=== PATIENT | male | born 1960 | race Caucasian/White ===

== ENCOUNTER 2019-06-08 10:06 | Inpatient (IN) | payer OTHER ==
[2019-06-08 12:05] VITALS: BMI 18.8
--- NOTE | 2019-06-08 13:25 | HP ---
CIWA Score Nausea/Vomitin Muscle Tremors: 3 Anxiety: 2 Agitation: 2 Paroxysmal Sweats: No Perspiration Orientation: 0-Oriented Tacttile Disturbances: 0-None Auditory Disturbances: 0-None Visual Disturbances: 0-None Headache: 3-Moderate CIWA-Ar Total Score: 12 - Admission Criteria OASAS Guidelines: Admission for Medically Managed Detox: Requires at least one of the followin. CIWA greater than 12 2. Seizures within the past 24 hours 3. Delirium tremens within the past 24 hours 4. Hallucinations within the past 24 hours 5. Acute intervention needed for co occurring medical disorder 6. Acute intervention needed for co occurring psychiatric disorder 7. Severe withdrawal that cannot be handled at a lower level of care (continued vomiting, continued diarrhea, abnormal vital signs) requiring intravenous medication and/or fluids 8. Admission ROS [facility] - [facility] Chief Complaint: alcohol detox Allergies/Adverse Reactions: Allergies Allergy/AdvReac Type Severity Reaction Status Date / Time Penicillins Allergy Unknown Hives Verified 06/08/19 11:55 History of Present Illness: Patient is a 58 yo M with a PMHx of Hep C (no treatment), arthritis, osteoporosis, depression, presenting here for alcohol detox. Has been drinking for 4 years. Drinks 6 24oz cans and a pint of rum every day. Last drink yesterday morning. 1 seizure 2 years old. Last blackout 2 years ago. says he had 2 days of detox last week at the hospital. He said he did detox a long time ago, but does not remember where. Smokes crack/cocaine whenever he has money. Last use 2 days ago. Denies pills. Denies benzo use. Says he was in the hospital yesterday because of back pain and they gave him benzo. Homeless. Disabled. Smokes 10 cigarettes a day. - Ebola screening Have you traveled outside of the country in the last 21 days: No (N) Have you had contact with anyone from an Ebola affected area: No Do you have a fever: No - Review of Systems Constitutional: Loss of Appetite, Unintentional Wgt. Loss Respiratory: denies: Shortness of Breath, Wheezing Cardiac: denies: Chest Pain, Palpitations Patient History - Smoking Cessation Smoking history: Current every day smoker Initiated information on smoking cessation: Yes 'Breaking Loose' booklet given: 06/08/19 - Substances abused K2/Spice Substance route: Smoking Frequency: Daily Amount used: 3 -4 blunts Age of first use: 54 Date of last use: 06/07/19 Alcohol Substance route: Oral Frequency: Daily Amount used: 1 pint of rum and 7 cans of beer Age of first use: 11 Date of last use: 06/07/19 Admission Physical Exam [facility] - Vital Signs Vital Signs: Vital Signs - 24 hr 06/08/19 11:54 Temperature 97.0 F L Pulse Rate 68 Respiratory 16 Rate Blood Pressure 115/71 - Physical General Appearance: Yes: No Apparent Distress Respiratory: Yes: No Respiratory Distress, No Accessory Muscle Use Cardiology: Yes: Regular Rhythm, Regular Rate Abdominal: Yes: Non Tender, Soft Extremities: Yes: Other (distal phalanx bruising and swelling of L 4th digit). No: Swelling - Diagnostic (1) Hepatitis C Current Visit: Yes Status: Acute (2) Alcohol abuse Current Visit: Yes Status: Acute (3) Cocaine abuse Current Visit: Yes Status: Acute (4) Depression Current Visit: Yes Status: Acute Cleared for Admission [facility] - Detox or Rehab [facility] Level of Care: Medically Managed Breathalyzer - Breathalyzer Breathalyzer: 0 Urine Drug Screen - Test Device Lot number: [id number] Expiration date: 02/26/21 - Control Is test valid?: Yes - Results Drug screen NEGATIVE: No Urine drug screen results: THUY-Cocaine, BZO-Benzodiazepines Inpatient Rehab Admission - Rehab Decision to Admit Inpatient rehab admission?: No
[2019-06-08] MEDS ORDERED: MAG HYDROX/AL HYDROX/SIMETH 30 ML UNIT-DOSE CUP PO PRN (14:16)
[2019-06-08] MEDS ORDERED: chlordiazePOXIDE HCL 25 MG CAPSULE PO PRN (14:16)
[2019-06-08] MEDS ORDERED: METHOCARBAMOL 500 MG TABLET PO PRN (14:16)
[2019-06-08] MEDS ORDERED: MELATONIN 5 MG TABLETS PO PRN (14:16)
[2019-06-08] MEDS ORDERED: NICOTINE POLACRILEX 4 MG GUM BUC PRN (14:16)
[2019-06-08] MEDS ORDERED: BISMUTH SUBSALICYLATE 262 MG/15 ML BTL PO PRN (14:16)
[2019-06-08] MEDS ORDERED: ACETAMINOPHEN 325 MG TABLET (FP) PO PRN ×2 (14:16)
[2019-06-08] MEDS ORDERED: MAGNESIUM CITRATE 300 ML BOTTLE PO PRN (14:16)
[2019-06-08] MEDS ORDERED: MENTHOL/PHENOL 1 EACH UD MM PRN (14:16)
[2019-06-08] MEDS ORDERED: MAGNESIUM HYDROX 2400MG/30ML ORAL SUSPENSION 30 ML CUP PO PRN (14:16)
[2019-06-08] MEDS ORDERED: IBUPROFEN 400 MG TABLET (FP) PO PRN (14:16)
[2019-06-08] MEDS ORDERED: hydrOXYzine PAMOATE 25 MG CAPSULE (FP) PO PRN (14:16)
--- NOTE | 2019-06-08 15:01 | PN ---
Teaching Attending Note Name of Resident: Narciso Villarreal ATTENDING PHYSICIAN STATEMENT I saw and evaluated the patient. I reviewed the resident's note and discussed the case with the resident. I agree with the resident's findings and plan as documented. SUBJECTIVE:58 y.o. male w/ PMHX Hep C no tx presents requesting detox from etoh use , 6 x 24 -oz can /day and 1 pint rum /day , was at [facility] d/ c 06/02/19 , states had blackout ,continued etoh use , d/c 06/05/19 @ [facility] , d/c today from [facility] , reports he slammed his left index finger in the door of a store yesterday. CIWA =12 OBJECTIVE: wnwd , anxious , agitated . Vital Signs - 24 hr 06/08/19 11:54 Temperature 97.0 F L Pulse Rate 68 Respiratory 16 Rate Blood Pressure 115/71 ASSESSMENT AND PLAN: etoh dependence -Librium detox pt declines XR of left finger - to sign AMA . CXR negative 06/02/19 .
[2019-06-08] MEDS: METHYL SALICYLATE/MENTHOL OINT 30 GM TUBE TP SCH (15:32)
[2019-06-08] MEDS: chlordiazePOXIDE HCL 25 MG CAPSULE PO SCH ×2 (17:14→22:19)
[2019-06-08] MEDS: THIAMINE HCL 100 MG TABLET (FP) PO SCH (22:19)
[2019-06-09] MEDS: chlordiazePOXIDE HCL 25 MG CAPSULE PO SCH ×2 (06:03→10:20)
[2019-06-09] MEDS: METHYL SALICYLATE/MENTHOL OINT 30 GM TUBE TP SCH (10:19)
[2019-06-09] MEDS: PRENATAL VITAMINS W/ FOLIC ACID TABLET (FP) PO SCH (10:20)
[2019-06-09 12:29] LABS: HEMATOCRIT 42.6 % (35.4-49); HEMOGLOBIN 14.1 GM/dL (11.7-16.9); MCH 32.4 pg (25.7-33.7); MCHC 33.1 g/dl (32.0-35.9); MEAN CELL VOLUME 97.8 fl (80-96); MEAN PLT VOLUME 9.7 fl (7.5-11.1); PLATELET COUNT 200 K/MM3 (134-434); RBC 4.35 M/mm3 (4.00-5.60); RDW 14.1 % (11.9-15.9); WHITE BLOOD COUNT 5.1 K/mm3 (4.0-10.0)
[2019-06-09 12:56] LABS: ALBUMIN 3.3 g/dl (3.4-5.0); BILIRUBIN,TOTAL 0.5 mg/dL (0.2-1); BLOOD UREA NITROGEN 7.8 mg/dL (7-18); CALCIUM 9.1 mg/dL (8.5-10.1); CREATININE 0.8 mg/dL (0.55-1.3); POTASSIUM 4.9 mmol/L (3.5-5.1)
--- NOTE | 2019-06-09 13:20 | PN ---
S CIWA - CIWA Score Nausea/Vomitin-Mild Nausea/No Vomiting Muscle Tremors: 3 Anxiety: 4-Mod. Anxious/Guarded Agitation: 3 Paroxysmal Sweats: 2 Orientation: 0-Oriented Tacttile Disturbances: 0-None Auditory Disturbances: 0-None Visual Disturbances: 0-None Headache: 1-Very Mild CIWA-Ar Total Score: 14 S Progress Note (SOAP) Subjective: 58 years old male 1st patient [facility] admission was admitted on 06/08/19 for alcohol withdrawal sx management doing well with librium detox regimen sleep batter at night less tremor mo muscles spasm today Objective: 06/09/19 13:22 Vital Signs Temperature 97.6 F 06/09/19 09:22 Pulse Rate 93 H 06/09/19 09:22 Respiratory Rate 20 06/09/19 09:22 Blood Pressure 108/82 06/09/19 09:22 O2 Sat by Pulse Oximetry (%) Laboratory Last Values WBC 5.1 K/mm3 (4.0-10.0) 06/09/19 08:50 RBC 4.35 M/mm3 (4.00-5.60) 06/09/19 08:50 Hgb 14.1 GM/dL (11.7-16.9) 06/09/19 08:50 Hct 42.6 % (35.4-49) 06/09/19 08:50 MCV 97.8 fl (80-96) H 06/09/19 08:50 MCH 32.4 pg (25.7-33.7) 06/09/19 08:50 MCHC 33.1 g/dl (32.0-35.9) 06/09/19 08:50 RDW 14.1 % (11.9-15.9) 06/09/19 08:50 Plt Count 200 K/MM3 (134-434) 06/09/19 08:50 MPV 9.7 fl (7.5-11.1) 06/09/19 08:50 Sodium 141 mmol/L (136-145) 06/09/19 08:50 Potassium 4.9 mmol/L (3.5-5.1) 06/09/19 08:50 Chloride 103 mmol/L (98-107) 06/09/19 08:50 Carbon Dioxide 33 mmol/L (21-32) H 06/09/19 08:50 Anion Gap 5 MMOL/L (8-16) L 06/09/19 08:50 BUN 7.8 mg/dL (7-18) 06/09/19 08:50 Creatinine 0.8 mg/dL (0.55-1.3) 06/09/19 08:50 Est GFR (CKD-EPI)AfAm 113.33 06/09/19 08:50 Est GFR (CKD-EPI)NonAf 97.78 06/09/19 08:50 Random Glucose 98 mg/dL (74-106) 06/09/19 08:50 Calcium 9.1 mg/dL (8.5-10.1) 06/09/19 08:50 Total Bilirubin 0.5 mg/dL (0.2-1) 06/09/19 08:50 AST 172 U/L (15-37) H 06/09/19 08:50 ALT 186 U/L (13-61) H 06/09/19 08:50 Alkaline Phosphatase 62 U/L (45-117) 06/09/19 08:50 Total Protein 7.0 g/dl (6.4-8.2) 06/09/19 08:50 Albumin 3.3 g/dl (3.4-5.0) L 06/09/19 08:50 lab noted recommend ativan detox regimen 06/09/19 13:24 ast elevation repeat ast Assessment: 06/09/19 13:23 alcohol withdrawal sx Plan: continue libirum detox regimen patient is considering librium detox
[2019-06-09] MEDS: LORazepam 1 MG TABLET PO SCH ×2 (17:41→22:05)
[2019-06-09] MEDS: THIAMINE HCL 100 MG TABLET (FP) PO SCH (22:05)
[2019-06-10] MEDS ORDERED: chlordiazePOXIDE HCL 25 MG CAPSULE PO SCH (05:00)
[2019-06-10] MEDS: LORazepam 0.5 MG TABLET PO SCH ×2 (06:02→10:18)
[2019-06-10 09:13] VITALS: BP 115/83; PULSE 89; TEMP 96.7
[2019-06-10] MEDS: PRENATAL VITAMINS W/ FOLIC ACID TABLET (FP) PO SCH (10:17)
[2019-06-10] MEDS: METHYL SALICYLATE/MENTHOL OINT 30 GM TUBE TP SCH (10:17)
--- NOTE | 2019-06-10 13:10 | DS ---
[facility] Detox Discharge Summary Admission Date: 06/08/19 Discharge Date: 06/10/19 - History Present History: Alcohol Dependence Additional Comments: 58 years old male admitted on 06/08/19 for alcohol withdrawal sx management did well with Ativan detox regimen insists to leave the detox unit that without rehab bed available today "no point to stay" patient is alert oriented x 3 denies dizziness no shortness of breath no nausea no vomiting denies jenkins ambulating steady gait speech clearly coherently - Physical Exam Results Vital Signs: Vital Signs Temperature 96.7 F L 06/10/19 09:12 Pulse Rate 89 06/10/19 09:12 Respiratory Rate 18 06/10/19 09:12 Blood Pressure 115/83 06/10/19 09:12 O2 Sat by Pulse Oximetry (%) Pertinent Admission Physical Exam Findings: alcohol withdrawal sx Laboratory Last Values WBC 5.1 K/mm3 (4.0-10.0) 06/09/19 08:50 RBC 4.35 M/mm3 (4.00-5.60) 06/09/19 08:50 Hgb 14.1 GM/dL (11.7-16.9) 06/09/19 08:50 Hct 42.6 % (35.4-49) 06/09/19 08:50 MCV 97.8 fl (80-96) H 06/09/19 08:50 MCH 32.4 pg (25.7-33.7) 06/09/19 08:50 MCHC 33.1 g/dl (32.0-35.9) 06/09/19 08:50 RDW 14.1 % (11.9-15.9) 06/09/19 08:50 Plt Count 200 K/MM3 (134-434) 06/09/19 08:50 MPV 9.7 fl (7.5-11.1) 06/09/19 08:50 Sodium 141 mmol/L (136-145) 06/09/19 08:50 Potassium 4.9 mmol/L (3.5-5.1) 06/09/19 08:50 Chloride 103 mmol/L (98-107) 06/09/19 08:50 Carbon Dioxide 33 mmol/L (21-32) H 06/09/19 08:50 Anion Gap 5 MMOL/L (8-16) L 06/09/19 08:50 BUN 7.8 mg/dL (7-18) 06/09/19 08:50 Creatinine 0.8 mg/dL (0.55-1.3) 06/09/19 08:50 Est GFR (CKD-EPI)AfAm 113.33 06/09/19 08:50 Est GFR (CKD-EPI)NonAf 97.78 06/09/19 08:50 Random Glucose 98 mg/dL (74-106) 06/09/19 08:50 Calcium 9.1 mg/dL (8.5-10.1) 06/09/19 08:50 Total Bilirubin 0.5 mg/dL (0.2-1) 06/09/19 08:50 AST 172 U/L (15-37) H 06/09/19 08:50 ALT 186 U/L (13-61) H 06/09/19 08:50 Alkaline Phosphatase 62 U/L (45-117) 06/09/19 08:50 Total Protein 7.0 g/dl (6.4-8.2) 06/09/19 08:50 Albumin 3.3 g/dl (3.4-5.0) L 06/09/19 08:50 RPR Titer Nonreactive (NONREACTIVE) 06/09/19 08:50 lab noted encourage the patient returning to primary care provider in the community patient stated "I am going to another hospital" - Treatment Hospital Course: Detox Protocol Followed, Detoxed Safely, Responded well, Discharged Condition Good, Rehab Referral Accepted Patient has Accepted a Re[facility] Referral to: [facility] - Medication Discharge Medications: Ambulatory Orders NK [No Known Home Medication] 06/08/19 - Diagnosis (1) Liver enzyme elevation Current Visit: Yes Status: Acute (2) Alcohol abuse Current Visit: Yes Status: Acute (3) Hepatitis C Current Visit: Yes Status: Chronic Qualifiers: Viral hepatitis chronicity: carrier Qualified Code(s): B18.2 - Chronic viral hepatitis C - AMA Did Patient Leave Against Medical Advice: Yes
[2019-06-11] MEDS ORDERED: chlordiazePOXIDE HCL 10 MG CAPSULE PO PRN
[2019-06-11] MEDS ORDERED: chlordiazePOXIDE HCL 10 MG CAPSULE PO SCH (05:00)
[2019-06-11] MEDS ORDERED: LORazepam 0.5 MG TABLET PO SCH (05:00)
[2019-06-12] MEDS ORDERED: chlordiazePOXIDE HCL 10 MG CAPSULE PO SCH (05:00)
[2019-06-12] MEDS ORDERED: LORazepam 0.5 MG TABLET PO SCH (05:00)
[2019-06-13] MEDS ORDERED: chlordiazePOXIDE HCL 10 MG CAPSULE PO ONE (05:00)
[2019-06-13] MEDS ORDERED: LORazepam 0.5 MG TABLET PO ONE (05:00)
== END 2019-06-10 12:07 | disposition left against medical advice (07) | DRG 770 ==
LOC: YASAS 10:06 → Y3N 14:38
PROVIDERS: ADMIT Surgery; ATTEND Surgery
PROC: HZ2ZZZZ Detoxification Services for Substance Abuse Treatment (ICD-10-PCS; principal; 2019-06-08)
DX: F10.230 Alcohol dependence with withdrawal, uncomplicated (principal); F14.10 Cocaine abuse, uncomplicated; F17.210 Nicotine dependence, cigarettes, uncomplicated; F32.9 Major depressive disorder, single episode, unspecified; B18.2 Chronic viral hepatitis C; R94.5 Abnormal results of liver function studies; Z88.0 Allergy status to penicillin
CPT/HCPCS: 36415; 80053; 85027; 86593

== ENCOUNTER 2019-07-06 14:41 | Inpatient (IN) | payer OTHER ==
[2019-07-06 15:27] VITALS: BMI 21.5
--- NOTE | 2019-07-06 15:55 | HP ---
CIWA Score Nausea/Vomitin Muscle Tremors: 4-Moderate,w/Arms Extend Anxiety: 2 Agitation: 1-Slight > Activity Paroxysmal Sweats: 1-Minimal Palms Moist Orientation: 1-Uncertain about Date Tacttile Disturbances: 1-Very Mild Itch/Numbness Auditory Disturbances: 0-None Visual Disturbances: 0-None Headache: 2-Mild CIWA-Ar Total Score: 14 - Admission Criteria OASAS Guidelines: Admission for Medically Managed Detox: Requires at least one of the followin. CIWA greater than 12 2. Seizures within the past 24 hours 3. Delirium tremens within the past 24 hours 4. Hallucinations within the past 24 hours 5. Acute intervention needed for co occurring medical disorder 6. Acute intervention needed for co occurring psychiatric disorder 7. Severe withdrawal that cannot be handled at a lower level of care (continued vomiting, continued diarrhea, abnormal vital signs) requiring intravenous medication and/or fluids 8. Patient presents the following: CIWA greater than 12 Admission Criteria Met: Admission criteria met Admitting History and Physical - Smoking History Smoking history: Current every day smoker Have you smoked in the past 12 months: Yes Aproximately how many cigarettes per day: 10 Admission ROS [facility] Chief Complaint: Tonny Blank is a 58 year old male presenting for alcohol, cocaine, and opiate abuse. Allergies/Adverse Reactions: Allergies Allergy/AdvReac Type Severity Reaction Status Date / Time Penicillins Allergy Unknown Hives Verified 07/06/19 15:22 History of Present Illness: Tonny Blank is a 58 year old male presenting for alcohol, cocaine, and opiate abuse. Alcohol: 6 24oz cans and a pint of rum every day. Last drink was yesterday. Has been drinking for 10 years. Longest period of sobriety: 10 years. Started drinking again due to divorce. Has had seizure in the past, most recent was several years prior. Has had blackouts, 3 months ago. Has had falls and head hits. Was at hospital for a recent fall and head hit and was cleared by [facility] for any acute pathology as per patient. Stated has residual rib pain. Withdrawal symptoms: anxiety, nausea, tremors. Cocaine: use depends on money 50$ and up. Uses daily. Heroin: 3-4 bags occasionally. Inhalation. Denies IVDU. Denies every being on methadone program. Denies overdose. Denies having a Narcan kit but knows how to use. THC: 2-3 blunts daily. Denies BZO use, but states he received medications at [facility], unsure of what medications. Has been to detox in the past. Denies previous rehab. States wanted to go to rehab after detox. Medical History: Hep C (no treatment), arthritis, osteoporosis, stroke (no residual deficits), Psychiatric History: depression Surgical History: denies Smokin cigarettes a day, for "many years" Social: Homeless. Disabled. Utox: THC, THUY, OPI, BZO DANIEL: 0.000 Will be admitted for detox and will explore options for rehab after completing detox. Will start on Librium protocol and reassess after obtaining labs. Exam Limitations: No Limitations - Ebola screening Have you traveled outside of the country in the last 21 days: No (N) Have you had contact with anyone from an Ebola affected area: No Do you have a fever: No - Review of Systems Constitutional: Chills, Loss of Appetite EENT: reports: No Symptoms Reported, Nose Congestion, Other (rhinnorhea) Respiratory: reports: Cough Cardiac: reports: No Symptoms Reported GI: reports: Constipated, Nausea : reports: Burning, Frequency Musculoskeletal: reports: Back Pain, Muscle Pain, Neck Pain, Other (rib pain on left and right s/p fall) Integumentary: reports: No Symptoms Reported Neuro: reports: Headache Endocrine: reports: No Symptoms Reported Hematology: reports: No Symptoms Reported Psychiatric: reports: Orientated x3, Anxious Patient History - Patient Medical History Hx Asthma: No Hx Chronic Obstructive Pulmonary Disease (COPD): No Hx Cardiac Disorders: No Hx Congestive Heart Failure: No Hx Hypertension: No Hx Hypercholesterolemia: No Hx Pacemaker: No HX Cerebrovascular Accident: Yes (no residual deficits) Hx Seizures: Yes (etoh related in 2013) Hx Dementia: No Hx Diabetes: No Hx Gastrointestinal Disorders: No Hx Liver Disease: No Hx Genitourinary Disorders: No Hx Sexually Transmitted Disorders: No Hx Renal Disease (ESRD): No Hx Thyroid Disease: No Hx Human Immunodeficiency Virus (HIV): No Hx Hepatitis C: Yes (not treated) Hx Depression: Yes (not in tx) Hx Suicide Attempt: No Hx Schizophrenia: No - Patient Surgical History Past Surgical History: No - Smoking Cessation Smoking history: Current every day smoker Have you smoked in the past 12 months: Yes Aproximately how many cigarettes per day: 10 Hx Chewing Tobacco Use: No Initiated information on smoking cessation: Yes 'Breaking Loose' booklet given: 07/06/19 - Substance & Tx. History Hx Alcohol Use: Yes Hx Substance Use: Yes Substance Use Type: Alcohol, Cocaine, Heroin, Marijuana - Substances abused K2/Spice Substance route: Smoking Frequency: Daily Amount used: 3 -4 blunts Age of first use: 54 Date of last use: 07/06/19 Alcohol Substance route: Oral Frequency: Daily Amount used: 1 pint of rum and 7 cans of beer Age of first use: 11 Date of last use: 07/05/19 Heroin Substance route: Inhalation Frequency: Daily Amount used: 4bags Age of first use: 53 Date of last use: 07/05/19 Crack Substance route: Smoking Frequency: Daily Amount used: $40 Age of first use: 29 Date of last use: 07/05/19 Admission Physical Exam S - Vital Signs Vital Signs: Vital Signs - 24 hr 07/06/19 07/06/19 15:17 15:38 Temperature 97.7 F 97.7 F Pulse Rate 65 65 Respiratory 18 18 Rate Blood Pressure 106/73 106/73 - Physical General Appearance: Yes: Disheveled, Mild Distress HEENTM: Yes: EOMI, Normocephalic, Normal Voice, WAI, Pharynx Normal Respiratory: Yes: Lungs Clear, Normal Breath Sounds, No Respiratory Distress, No Accessory Muscle Use Neck: Yes: No masses,lesions,Nodules, Trachea in good position Breast: Yes: Breast Exam Deferred Cardiology: Yes: Regular Rhythm, Regular Rate, S1, S2 Abdominal: Yes: Normal Bowel Sounds, Flat, Soft, Tenderness (mildly tender around ribs) Back: Yes: Normal Inspection Musculoskeletal: Yes: full range of Motion Extremities: Yes: Normal Capillary Refill, Normal Range of Motion, Non-Tender, Other (missing nails s/p trauma on L hand) Neurological: Yes: quilt sewer II-XII NML intact, Alert, Motor Strength 5/5 Integumentary: Yes: Normal Color, Dry, Warm, Other (noted lesion on bilateral knees s/p fall, healing well) - Diagnostic (1) Alcohol abuse Current Visit: No Status: Acute (2) Cocaine abuse Current Visit: No Status: Acute (3) Depression Current Visit: No Status: Acute (4) Liver enzyme elevation Current Visit: No Status: Acute (5) Hepatitis C Current Visit: No Status: Chronic Qualifiers: Viral hepatitis chronicity: carrier Qualified Code(s): B18.2 - Chronic viral hepatitis C Cleared for Admission [facility] - Detox or Rehab [facility] Level of Care: Medically Managed Detox Regimen/Protocol: Librium Breathalyzer - Breathalyzer Breathalyzer: 0 Urine Drug Screen - Test Device Lot number: [id number] Expiration date: 02/26/21 - Control Is test valid?: Yes - Results Drug screen NEGATIVE: No Urine drug screen results: THC-Marijuana, THUY-Cocaine, MOP-Opiates, BZO- Benzodiazepines Inpatient Rehab Admission - Rehab Decision to Admit Inpatient rehab admission?: No
[2019-07-06] MEDS ORDERED: MAGNESIUM CITRATE 300 ML BOTTLE PO PRN (16:26)
[2019-07-06] MEDS ORDERED: MAG HYDROX/AL HYDROX/SIMETH 30 ML UNIT-DOSE CUP PO PRN (16:26)
[2019-07-06] MEDS ORDERED: hydrOXYzine PAMOATE 25 MG CAPSULE (FP) PO PRN (16:26)
[2019-07-06] MEDS ORDERED: chlordiazePOXIDE HCL 25 MG CAPSULE PO PRN (16:26)
[2019-07-06] MEDS ORDERED: BISMUTH SUBSALICYLATE 524 MG/30 ML UD PO PRN (16:26)
[2019-07-06] MEDS ORDERED: MAGNESIUM HYDROX 2400MG/30ML ORAL SUSPENSION 30 ML CUP PO PRN (16:26)
[2019-07-06] MEDS ORDERED: MENTHOL/PHENOL 1 EACH UD MM PRN (16:26)
[2019-07-06] MEDS ORDERED: IBUPROFEN 600 MG TABLET (FP) PO PRN (16:32)
--- NOTE | 2019-07-06 16:36 | PN ---
Teaching Attending Note Name of Resident: Drake Cruz ATTENDING PHYSICIAN STATEMENT I saw and evaluated the patient. I reviewed the resident's note and discussed the case with the resident. I agree with the resident's findings and plan as documented. SUBJECTIVE:pt here requesting detox from etoh use , reports 6 x 24oz cans and a pint of rum every dayx 10 years . Last drink was yesterday, longest period of sobriety: 10 years.Has had seizure in the past, most recent was several years ago, reports blackouts and falls while intoxicated , most recently was at [facility] d/c today 2/2 fall , residual rib pain. Withdrawal symptoms: anxiety, nausea, tremors. Cocaine: use depends on money 50$ daily Heroin: 3-4 bags occasionally via inhalation. Denies IVDU. Denies MMTP Denies overdose. Denies having a Narcan kit but knows how to use it THC: 2-3 blunts daily. OBJECTIVE: wnwd , tremulous , CIWA 14 , COWS 5 ( anxiety , agitation , nausea - may be overlap from ETOH withdrawal ) Vital Signs - 24 hr 07/06/19 07/06/19 15:17 15:38 Temperature 97.7 F 97.7 F Pulse Rate 65 65 Respiratory 18 18 Rate Blood Pressure 106/73 106/73 ASSESSMENT AND PLAN: etoh dependence with withdrawal - Librium detox Cocaine dependence / Cannabis dependence / Opioid use , episodic
[2019-07-06] MEDS ORDERED: PNEUMOC 13-VAL CONJ-DIP CRM/PF 0.5 ML DISP.SYRIN IM ONE (17:13)
[2019-07-06] MEDS: chlordiazePOXIDE HCL 25 MG CAPSULE PO SCH ×2 (17:48→22:11)
[2019-07-06] MEDS: THIAMINE HCL 100 MG TABLET (FP) PO SCH (22:11)
[2019-07-07] MEDS: chlordiazePOXIDE HCL 25 MG CAPSULE PO SCH ×4 (06:01→22:01)
[2019-07-07] MEDS ORDERED: MECLIZINE HCL 12.5 MG TABLET PO PRN (10:13)
--- NOTE | 2019-07-07 10:16 | PN ---
S CIWA - CIWA Score Nausea/Vomitin Muscle Tremors: 2 Anxiety: 4-Mod. Anxious/Guarded Agitation: 4-Moderately Restless Paroxysmal Sweats: 1-Minimal Palms Moist Orientation: 0-Oriented Tacttile Disturbances: 1-Very Mild Itch/Numbness Auditory Disturbances: 0-None Visual Disturbances: 1-Very Mild Sensitivity Headache: 2-Mild CIWA-Ar Total Score: 18 [facility] COWS - Scale Resting Pulse: 1= DC 81-100 Sweatin= Chills/Flushing Restless Observation: 1= Difficult to Sit Still Pupil Size: 1= Pupils >than Normal Bone or Joint Aches: 2= Severe Diffuse Aches Runny Nose/ Eye Tearin= Runny Nose/Eyes GI Upset > 30mins: 2= Nausea/Diarrhea Tremor Observation of Outstretched Hands: 1= Tremor [place], Not Seen Yawning Observation: 0= None Anxiety or Irritability: 2=Irritable/Anxious Goose Flesh Skin: 0=Smooth Skin COWS Score: 13 [facility] Progress Note (SOAP) Subjective: c/o anxiety, nausea and dirrhea, hx of vertigo, body , chills, interrupted sleep Objective: 07/07/19 10:16 Vital Signs Temperature 98.3 F 07/07/19 09:05 Pulse Rate 97 H 07/07/19 09:05 Respiratory Rate 20 07/07/19 09:05 Blood Pressure 97/74 07/07/19 09:05 O2 Sat by Pulse Oximetry (%) labs pending Assessment: 07/07/19 10:17 Aox3, no acute distress +irritable + anxious + rhinorrhea no adventitious breath sounds full ROM no gait disturbance + back pain withdrawal sx Plan: utox revieviewed patient positive for opiates upon admission, reports hx of daily heroin daily use started on methadone [place]
[2019-07-07] MEDS ORDERED: cloNIDine HCL 0.1 MG TABLET PO PRN (10:19)
[2019-07-07] MEDS: PRENATAL VITAMINS W/ FOLIC ACID TABLET (FP) PO SCH (10:19)
[2019-07-07] MEDS: IBUPROFEN 400 MG TABLET (FP) PO PRN ×2 (10:21→17:18)
[2019-07-07] MEDS ORDERED: METHADONE HCL 10 MG TABLET (FOR DETOX USE ONLY) PO ONE (11:00)
[2019-07-07] MEDS: BACITRACIN 15 GM TUBE TOPICAL OINTMENT TP SCH (11:45)
[2019-07-07] MEDS: METHOCARBAMOL 500 MG TABLET PO SCH ×2 (11:45→22:01)
[2019-07-07] MEDS ORDERED: PNEUMOCOCCAL 23 VACCINE 0.5 ML VIAL IM ONE (12:00)
[2019-07-07] MEDS ORDERED: PNEUMOC 13-VAL CONJ-DIP CRM/PF 0.5 ML DISP.SYRIN IM ONE (12:00)
[2019-07-07 12:03] LABS: ALBUMIN 3.5 g/dl (3.4-5.0); BILIRUBIN,TOTAL 0.7 mg/dL (0.2-1); BLOOD UREA NITROGEN 13.5 mg/dL (7-18); CALCIUM 8.9 mg/dL (8.5-10.1); CREATININE 0.9 mg/dL (0.55-1.3); HEMATOCRIT 43.9 % (35.4-49); HEMOGLOBIN 14.7 GM/dL (11.7-16.9); MCH 32.5 pg (25.7-33.7); MCHC 33.4 g/dl (32.0-35.9); MEAN CELL VOLUME 97.1 fl (80-96); MEAN PLT VOLUME 9.2 fl (7.5-11.1); PLATELET COUNT 276 K/MM3 (134-434); POTASSIUM 4.4 mmol/L (3.5-5.1); RBC 4.52 M/mm3 (4.00-5.60); RDW 14.1 % (11.9-15.9); TOT PROT 7.8 g/dl (6.4-8.2); WHITE BLOOD COUNT 6.2 K/mm3 (4.0-10.0)
[2019-07-07 12:06] LABS: HYALINE CASTS 0 /lpf (0-8); PH,URINE 6.5 (5.0-8.0); URINE APPEARANCE CLEAR; URINE BILIRUBIN NEGATIVE (NEGATIVE); URINE COLOR YELLOW; URINE GLUCOSE (UA) NEGATIVE (NEGATIVE); URINE KETONE NEGATIVE (NEGATIVE); URINE LEUK ESTERASE 1+ (NEGATIVE); URINE NITRITE NEGATIVE (NEGATIVE); URINE PROTEIN NEGATIVE (NEGATIVE); URINE RBC 1 /hpf (0-4); URINE WBC 3 /hpf (0-5)
[2019-07-07] MEDS: THIAMINE HCL 100 MG TABLET (FP) PO SCH (22:01)
[2019-07-07] MEDS: MELATONIN 5 MG TABLETS PO PRN (22:01)
[2019-07-08] MEDS: chlordiazePOXIDE HCL 25 MG CAPSULE PO SCH ×4 (05:59→22:11)
[2019-07-08] MEDS ORDERED: METHADONE HCL 5 MG TABLET (FOR DETOX USE ONLY) PO ONE (10:00)
[2019-07-08] MEDS: PRENATAL VITAMINS W/ FOLIC ACID TABLET (FP) PO SCH (10:14)
[2019-07-08] MEDS: METHOCARBAMOL 500 MG TABLET PO SCH ×2 (10:14→22:11)
[2019-07-08] MEDS: BACITRACIN 15 GM TUBE TOPICAL OINTMENT TP SCH (10:15)
[2019-07-08] MEDS: CARBAMIDE PEROXIDE 6.5% OTIC 15 ML BOTTLE AS SCH ×2 (15:27→21:23)
--- NOTE | 2019-07-08 15:36 | PN ---
S CIWA - CIWA Score Nausea/Vomitin Muscle Tremors: None Anxiety: 3 Agitation: 2 Paroxysmal Sweats: 2 (and Chills.) Orientation: 2-Disoriented Date<2 days Tacttile Disturbances: 1-Very Mild Itch/Numbness Auditory Disturbances: 0-None Visual Disturbances: 0-None Headache: 0-None Present CIWA-Ar Total Score: 12 [facility] COWS - Scale Resting Pulse: 0= [place] 80 or Below Sweatin= Chills/Flushing Restless Observation: 1= Difficult to Sit Still Pupil Size: 0= Normal to Room Light Bone or Joint Aches: 1= Mild Discomfort Runny Nose/ Eye Tearin= None GI Upset > 30mins: 2= Nausea/Diarrhea Tremor Observation of Outstretched Hands: 0= None Yawning Observation: 0= None Anxiety or Irritability: 2=Irritable/Anxious Goose Flesh Skin: 3=Piloerection (and Chills.) COWS Score: 10 [facility] Progress Note (SOAP) Subjective: Anxious, Sweating, Chills, Nausea. Objective: PATIENT A & O X 2 (UNCERTAIN ABOUT CURRENT DAY/ DATE). PATIENT OBSERVED AMBULATING ON DETOX UNIT UNASSISTED. IN NO ACUTE DISTRESS. 07/08/19 15:43 Vital Signs Temperature 97.0 F L 07/08/19 14:10 Pulse Rate 64 07/08/19 14:10 Respiratory Rate 18 07/08/19 14:10 Blood Pressure 104/73 07/08/19 14:10 O2 Sat by Pulse Oximetry (%) Laboratory Tests 07/07/19 07/07/19 07/07/19 08:45 08:45 08:45 WBC 6.2 RBC 4.52 Hgb 14.7 Hct 43.9 MCV 97.1 H MCH 32.5 MCHC 33.4 RDW 14.1 Plt Count 276 D MPV 9.2 Sodium 138 Potassium 4.4 Chloride 102 Carbon Dioxide 31 Anion Gap 5 L BUN 13.5 Creatinine 0.9 Est GFR (CKD-EPI)AfAm 107.97 Est GFR (CKD-EPI)NonAf 93.16 Random Glucose 132 H Calcium 8.9 Total Bilirubin 0.7 AST 84 H ALT 98 H Alkaline Phosphatase 74 Total Protein 7.8 Albumin 3.5 Urine Color Urine Appearance Urine pH Ur Specific [place] Urine Protein Urine Glucose (UA) Urine Ketones Urine Blood Urine Nitrite Urine Bilirubin Urine Urobilinogen Ur Leukocyte Esterase Urine WBC (Auto) Urine RBC (Auto) Urine Casts (Auto) U Epithel Cells (Auto) Urine Bacteria (Auto) RPR Titer Nonreactive HIV 1&2 Antibody Screen HIV P24 Antigen 07/07/19 07/07/19 08:50 10:50 WBC RBC Hgb Hct MCV MCH MCHC RDW Plt Count MPV Sodium Potassium Chloride Carbon Dioxide Anion Gap BUN Creatinine Est GFR (CKD-EPI)AfAm Est GFR (CKD-EPI)NonAf Random Glucose Calcium Total Bilirubin AST ALT Alkaline Phosphatase Total Protein Albumin Urine Color Yellow Urine Appearance Clear Urine pH 6.5 Ur Specific [place] 1.017 Urine Protein Negative Urine Glucose (UA) Negative Urine Ketones Negative Urine Blood Negative Urine Nitrite Negative Urine Bilirubin Negative Urine Urobilinogen 1.0 Ur Leukocyte Esterase 1+ H Urine WBC (Auto) 3 Urine RBC (Auto) 1 Urine Casts (Auto) 0 U Epithel Cells (Auto) 1.0 Urine Bacteria (Auto) 6.0 RPR Titer HIV 1&2 Antibody Screen Negative HIV P24 Antigen Negative LABS NOTED. Assessment: 07/08/19 15:52 WITHDRAWAL SYMPTOMS. ELEVATED AST LEVEL. ELEVATED ALT LEVEL. HYPERGLYCEMIA. Plan: CONTINUE DETOX. INCREASE DAILY PO WATER INTAKE. FASTING GLUCOSE LEVEL ORDERED FOR TOMORROW AM FOR ELEVATED RANDOM GLUCOSE LEVEL NOTED ON DETOX ADMISSION LABORATORY ASSESSMENT. REPEAT UA FOR ADMISSION UA ABNORMALITIES.
[2019-07-08] MEDS: IBUPROFEN 400 MG TABLET (FP) PO PRN (17:39)
[2019-07-08] MEDS: THIAMINE HCL 100 MG TABLET (FP) PO SCH (22:11)
[2019-07-08] MEDS: MELATONIN 5 MG TABLETS PO PRN (22:11)
[2019-07-09] MEDS ORDERED: chlordiazePOXIDE HCL 10 MG CAPSULE PO PRN
[2019-07-09] MEDS: chlordiazePOXIDE HCL 10 MG CAPSULE PO SCH ×4 (05:52→22:56)
[2019-07-09] MEDS ORDERED: METHADONE HCL 10 MG TABLET (FOR DETOX USE ONLY) PO ONE (10:00)
[2019-07-09] MEDS: METHOCARBAMOL 500 MG TABLET PO SCH (10:05)
[2019-07-09] MEDS: CARBAMIDE PEROXIDE 6.5% OTIC 15 ML BOTTLE AS SCH ×2 (10:05→22:12)
[2019-07-09] MEDS: PRENATAL VITAMINS W/ FOLIC ACID TABLET (FP) PO SCH (10:07)
[2019-07-09] MEDS: BACITRACIN 15 GM TUBE TOPICAL OINTMENT TP SCH (10:07)
--- NOTE | 2019-07-09 15:48 | PN ---
BHS COWS - Scale Resting Pulse: 0= VT 80 or Below Sweatin= Chills/Flushing Restless Observation: 1= Difficult to Sit Still Pupil Size: 0= Normal to Room Light Bone or Joint Aches: 2= Severe Diffuse Aches Runny Nose/ Eye Tearin= None GI Upset > 30mins: 0= None Tremor Observation of Outstretched Hands: 1= Tremor [place], Not Seen Yawning Observation: 1= 1-2x During Session Anxiety or Irritability: 2=Irritable/Anxious Goose Flesh Skin: 0=Smooth Skin COWS Score: 8 BHS Progress Note (SOAP) Subjective: Body Aches, Anxious, Sweating. Objective: PATIENT A & O X 3, OBSERVED AMBULATING ON DETOX UNIT UNASSISTED. IN NO ACUTE DISTRESS. 07/09/19 15:47 Vital Signs Temperature 99.2 F 07/09/19 13:44 Pulse Rate 73 07/09/19 13:44 Respiratory Rate 18 07/09/19 13:44 Blood Pressure 112/65 07/09/19 13:44 O2 Sat by Pulse Oximetry (%) Laboratory Tests 07/07/19 07/07/19 07/07/19 08:45 08:45 08:45 WBC 6.2 RBC 4.52 Hgb 14.7 Hct 43.9 MCV 97.1 H MCH 32.5 MCHC 33.4 RDW 14.1 Plt Count 276 D MPV 9.2 Sodium 138 Potassium 4.4 Chloride 102 Carbon Dioxide 31 Anion Gap 5 L BUN 13.5 Creatinine 0.9 Est GFR (CKD-EPI)AfAm 107.97 Est GFR (CKD-EPI)NonAf 93.16 Random Glucose 132 H Fasting Glucose Calcium 8.9 Total Bilirubin 0.7 AST 84 H ALT 98 H Alkaline Phosphatase 74 Total Protein 7.8 Albumin 3.5 Urine Color Urine Appearance Urine pH Ur Specific [place] Urine Protein Urine Glucose (UA) Urine Ketones Urine Blood Urine Nitrite Urine Bilirubin Urine Urobilinogen Ur Leukocyte Esterase Urine WBC (Auto) Urine RBC (Auto) Urine Casts (Auto) U Epithel Cells (Auto) Urine Bacteria (Auto) RPR Titer Nonreactive HIV 1&2 Antibody Screen HIV P24 Antigen 07/07/19 07/07/19 07/09/19 08:50 10:50 08:00 WBC RBC Hgb Hct MCV MCH MCHC RDW Plt Count MPV Sodium Potassium Chloride Carbon Dioxide Anion Gap BUN Creatinine Est GFR (CKD-EPI)AfAm Est GFR (CKD-EPI)NonAf Random Glucose Fasting Glucose 107 H Calcium Total Bilirubin AST ALT Alkaline Phosphatase Total Protein Albumin Urine Color Yellow Urine Appearance Clear Urine pH 6.5 Ur Specific [place] 1.017 Urine Protein Negative Urine Glucose (UA) Negative Urine Ketones Negative Urine Blood Negative Urine Nitrite Negative Urine Bilirubin Negative Urine Urobilinogen 1.0 Ur Leukocyte Esterase 1+ H Urine WBC (Auto) 3 Urine RBC (Auto) 1 Urine Casts (Auto) 0 U Epithel Cells (Auto) 1.0 Urine Bacteria (Auto) 6.0 RPR Titer HIV 1&2 Antibody Screen Negative HIV P24 Antigen Negative LABS NOTED. RESULTS OF FASTING GLUCOSE LEVEL NOTED (107, SLIGHTLY ELEVATED OUTSIDE OF NORMAL RANGE) RESULTS OF REPEAT UA PENDING. 07/09/19 15:49 Assessment: 07/09/19 15:49 WITHDRAWAL SYMPTOMS. ELEVATED AST LEVEL. ELEVATED ALT LEVEL. 07/09/19 15:50 Plan: CONTINUE DETOX. INCREASE DAILY PO WATER INTAKE. PATIENT ADVISED TO FOLLOW-UP WITH FIXING MACHINE OPERATOR AFTER DISCHARGE FROM DETOX FOR ELEVATED FASTING BLOOD GLUCOSE LEVEL AND FOR ELEVATED AST AND ALT LEVELS NOTED ON DETOX LABORATORY ASSESSMENT. PATIENT VERBALIZED UNDERSTANDING OF RECOMMENDATION. COPIES OF RESULTS OF ALL LABS DRAWN WHILE ADMITTED FOR DETOX GIVEN TO PATIENT AT TIME OF DISCHARGE FROM DETOX UNIT.
[2019-07-09] MEDS: BACLOFEN 10 MG TABLET (FP) PO PRN (17:40)
[2019-07-09] MEDS: THIAMINE HCL 100 MG TABLET (FP) PO SCH (22:12)
[2019-07-09] MEDS: MELATONIN 5 MG TABLETS PO PRN (22:13)
[2019-07-10] MEDS: chlordiazePOXIDE HCL 10 MG CAPSULE PO SCH ×2 (05:42→17:39)
[2019-07-10] MEDS ORDERED: METHADONE HCL 5 MG TABLET (FOR DETOX USE ONLY) PO ONE (06:00)
--- NOTE | 2019-07-10 10:15 | PN ---
BHS COWS - Scale Resting Pulse: 0= ID 80 or Below Sweatin= Chills/Flushing Restless Observation: 1= Difficult to Sit Still Pupil Size: 0= Normal to Room Light Bone or Joint Aches: 1= Mild Discomfort Runny Nose/ Eye Tearin= None GI Upset > 30mins: 0= None Tremor Observation of Outstretched Hands: 0= None Yawning Observation: 0= None Anxiety or Irritability: 1=Feels Anxious/Irritable Goose Flesh Skin: 0=Smooth Skin COWS Score: 4 BHS Progress Note (SOAP) Subjective: c/o mild anxiety, sweats, and mild muscle aches. Objective: 07/10/19 10:15 Vital Signs 07/10/19 07/10/19 07/10/19 03:30 06:35 09:27 Temperature 99.2 F 98.5 F Pulse Rate 70 68 Respiratory 18 16 18 Rate Blood Pressure 98/59 L 108/67 Lab Results WBC 6.2 K/mm3 (4.0-10.0) 07/07/19 08:45 RBC 4.52 M/mm3 (4.00-5.60) 07/07/19 08:45 Hgb 14.7 GM/dL (11.7-16.9) 07/07/19 08:45 Hct 43.9 % (35.4-49) 07/07/19 08:45 MCV 97.1 fl (80-96) H 07/07/19 08:45 MCHC 33.4 g/dl (32.0-35.9) 07/07/19 08:45 RDW 14.1 % (11.9-15.9) 07/07/19 08:45 Plt Count 276 K/MM3 (134-434) D 07/07/19 08:45 Sodium 138 mmol/L (136-145) 07/07/19 08:45 Potassium 4.4 mmol/L (3.5-5.1) 07/07/19 08:45 Chloride 102 mmol/L (98-107) 07/07/19 08:45 Carbon Dioxide 31 mmol/L (21-32) 07/07/19 08:45 Anion Gap 5 MMOL/L (8-16) L 07/07/19 08:45 BUN 13.5 mg/dL (7-18) 07/07/19 08:45 Creatinine 0.9 mg/dL (0.55-1.3) 07/07/19 08:45 Random Glucose 132 mg/dL (74-106) H 07/07/19 08:45 Calcium 8.9 mg/dL (8.5-10.1) 07/07/19 08:45 Labs noted. Assessment: 07/10/19 10:16 AOX3, in no acute respiratory distress. Full ROM, ambulating in the unit. Mild withdrawal symptoms. For d/c tomorrow to rehab. 07/10/19 10:17 Plan: continue detox. D/C in AM to rehab.
[2019-07-10] MEDS: CARBAMIDE PEROXIDE 6.5% OTIC 15 ML BOTTLE AS SCH ×2 (10:41→21:55)
[2019-07-10] MEDS: BACITRACIN 15 GM TUBE TOPICAL OINTMENT TP SCH (10:41)
[2019-07-10] MEDS: PRENATAL VITAMINS W/ FOLIC ACID TABLET (FP) PO SCH (10:42)
[2019-07-10] MEDS: IBUPROFEN 400 MG TABLET (FP) PO PRN (10:42)
[2019-07-10] MEDS: MELATONIN 5 MG TABLETS PO PRN (21:55)
[2019-07-10] MEDS: THIAMINE HCL 100 MG TABLET (FP) PO SCH (21:55)
[2019-07-10] MEDS: BACLOFEN 10 MG TABLET (FP) PO PRN (21:55)
[2019-07-11] MEDS ORDERED: chlordiazePOXIDE HCL 10 MG CAPSULE PO ONE (05:00)
[2019-07-11 09:19] VITALS: BP 105/73; PULSE 77; TEMP 98.9
[2019-07-11] MEDS: PRENATAL VITAMINS W/ FOLIC ACID TABLET (FP) PO SCH (11:18)
[2019-07-11] MEDS: BACITRACIN 15 GM TUBE TOPICAL OINTMENT TP SCH (11:18)
[2019-07-11] MEDS: CARBAMIDE PEROXIDE 6.5% OTIC 15 ML BOTTLE AS SCH (11:18)
--- NOTE | 2019-07-11 14:03 | DS ---
[facility] Detox Discharge Summary Admission Date: 07/06/19 Discharge Date: 07/11/19 - History Present History: Alcohol Dependence, Cannabis Dependence, Cocaine Dependence, Opioid Dependence, K 2 Additional Comments: Pt is medically cleared and discharge today. Pt completed his detox protocol and discharged to [facility] for continued management. Pt is alert and oriented x3 and in no respiratory distress. Pertinent Past History: H/O seizures, alcohol, cocaine, heroin, and cannabis use diorder. - Physical Exam Results Vital Signs: Vital Signs Temperature 98.9 F 07/11/19 09:18 Pulse Rate 77 07/11/19 09:18 Respiratory Rate 18 07/11/19 09:18 Blood Pressure 105/73 07/11/19 09:18 O2 Sat by Pulse Oximetry (%) Vital Signs 07/11/19 07/11/19 06:14 09:18 Temperature 97.6 F 98.9 F Pulse Rate 69 77 Respiratory 18 18 Rate Blood Pressure 90/54 L 105/73 Lab Results WBC 6.2 K/mm3 (4.0-10.0) 07/07/19 08:45 RBC 4.52 M/mm3 (4.00-5.60) 07/07/19 08:45 Hgb 14.7 GM/dL (11.7-16.9) 07/07/19 08:45 Hct 43.9 % (35.4-49) 07/07/19 08:45 MCV 97.1 fl (80-96) H 07/07/19 08:45 MCHC 33.4 g/dl (32.0-35.9) 07/07/19 08:45 RDW 14.1 % (11.9-15.9) 07/07/19 08:45 Plt Count 276 K/MM3 (134-434) D 07/07/19 08:45 Sodium 138 mmol/L (136-145) 07/07/19 08:45 Potassium 4.4 mmol/L (3.5-5.1) 07/07/19 08:45 Chloride 102 mmol/L (98-107) 07/07/19 08:45 Carbon Dioxide 31 mmol/L (21-32) 07/07/19 08:45 Anion Gap 5 MMOL/L (8-16) L 07/07/19 08:45 BUN 13.5 mg/dL (7-18) 07/07/19 08:45 Creatinine 0.9 mg/dL (0.55-1.3) 07/07/19 08:45 Random Glucose 132 mg/dL (74-106) H 07/07/19 08:45 Calcium 8.9 mg/dL (8.5-10.1) 07/07/19 08:45 Labs noted. Pertinent Admission Physical Exam Findings: withdrawal symptoms. - Treatment Hospital Course: Detox Protocol Followed, Detoxed Safely, Responded well, Discharged Condition Good, Rehab Referral Accepted Patient has Accepted a Rehab Referral to: [facility]. - Medication Discharge Medications: Ambulatory Orders NK [No Known Home Medication] 06/08/19 - Diagnosis (1) Elevated alanine aminotransferase (ALT) level Current Visit: Yes Status: Acute (2) Elevated aspartate aminotransferase level Current Visit: Yes Status: Acute (3) Alcohol abuse Current Visit: No Status: Acute (4) Cocaine abuse Current Visit: No Status: Acute (5) Hepatitis C Current Visit: No Status: Chronic Qualifiers: Viral hepatitis chronicity: carrier Qualified Code(s): B18.2 - Chronic viral hepatitis C - AMA Did Patient Leave Against Medical Advice: No
== END 2019-07-11 15:23 | disposition other institution (70) | DRG 773 ==
LOC: YASAS 14:41 → Y3N 16:57
PROVIDERS: ADMIT Allergy & Immunology; ATTEND Allergy & Immunology
PROC: HZ2ZZZZ Detoxification Services for Substance Abuse Treatment (ICD-10-PCS; principal; 2019-07-06)
DX: F10.230 Alcohol dependence with withdrawal, uncomplicated (principal); F11.20 Opioid dependence, uncomplicated; F14.20 Cocaine dependence, uncomplicated; F12.20 Cannabis dependence, uncomplicated; F19.20 Other psychoactive substance dependence, uncomplicated; F17.210 Nicotine dependence, cigarettes, uncomplicated; F32.9 Major depressive disorder, single episode, unspecified; B18.2 Chronic viral hepatitis C; R73.9 Hyperglycemia, unspecified; R94.5 Abnormal results of liver function studies; M62.838 Other muscle spasm; Z86.73 Personal history of transient ischemic attack (TIA), and cerebral infarction without residual deficits; Z86.69 Personal history of other diseases of the nervous system and sense organs; Z88.0 Allergy status to penicillin
CPT/HCPCS: 36415; 80053; 81003; 82947; 85027; 86593; 87389; 90732; G0009; J0475

== ENCOUNTER 2019-07-11 12:46 | Inpatient (IN) | payer OTHER ==
[2019-07-11] MEDS ORDERED: MAGNESIUM CITRATE 300 ML BOTTLE PO PRN (14:31)
[2019-07-11] MEDS ORDERED: guaiFENesin 200 MG/10 ML 10 ML UNIT-DOSE CUPS PO PRN (14:31)
[2019-07-11] MEDS ORDERED: LOPERAMIDE HCL 2 MG CAPSULE PO PRN (14:31)
[2019-07-11] MEDS ORDERED: MENTHOL/PHENOL 1 EACH UD MM PRN (14:31)
[2019-07-11] MEDS ORDERED: P-EPHED 60MG/TRIPROLIDI 2.5MG TABLET PO PRN (14:31)
[2019-07-11] MEDS ORDERED: MAG HYDROX/AL HYDROX/SIMETH 30 ML UNIT-DOSE CUP PO PRN (14:31)
[2019-07-11] MEDS ORDERED: MAGNESIUM HYDROX 2400MG/30ML ORAL SUSPENSION 30 ML CUP PO PRN (14:31)
--- NOTE | 2019-07-11 14:31 | HP ---
[facility] Rehab Assess/Revision - Admission History Admitted to Rehab from: [facility] [place] Date of Admission to Rehab: 07/11/19 - Vital signs Vital Signs: stable. - Findings Detox History & Physical reviewed: Yes Concur with findings: Yes Comments/Additional Findings: Pt is medically cleared from detox to rehab. Inpatient Rehab Admission - Rehab Decision to Admit Inpatient rehab admission?: Yes - Initial Determination Are CD services needed?: Yes Free of communicable disease: Yes Not in need of hospitalization: Yes - Rehab Admission Criteria Previous failed treatment: Yes Poor recovery environment: Yes Comorbidities: Yes Lacks judgement: No Patient is meeting Inpatient Rehab admission criteria:: Yes
[2019-07-11] MEDS: THIAMINE HCL 100 MG TABLET (FP) PO SCH (21:39)
[2019-07-11] MEDS: MELATONIN 5 MG TABLETS PO PRN (21:39)
[2019-07-12] MEDS ORDERED: PT OWN MED DRAWER 7, Y5N ONE ×4 (08:54→19:05)
[2019-07-12] MEDS: PRENATAL VITAMINS W/ FOLIC ACID TABLET (FP) PO SCH (09:32)
[2019-07-12] MEDS: IBUPROFEN 400 MG TABLET (FP) PO PRN (10:02)
[2019-07-12] MEDS: BACITRACIN 15 GM TUBE TOPICAL OINTMENT TP SCH (11:40)
--- NOTE | 2019-07-12 13:19 | PN ---
S Progress Note Note: Patient c/o unsteadiness due to left ear fullness. Patient states symptoms intermittent and denies falling and/or syncope. Treated with debrox drops while in detox. Vital Signs Temperature 97.8 F 07/12/19 06:00 Pulse Rate 61 07/12/19 06:00 Respiratory Rate 18 07/12/19 06:00 Blood Pressure 100/72 07/12/19 06:00 O2 Sat by Pulse Oximetry (%) PE alert and oriented x 3 skin warm and dry +perrla eoms intact bl left ear canal intact, no cerumen, tm pearly alexandra right ear canal with mild cerumen, tm intact, pearly alexandra a/p: cerumen right ear will resume debrox gtts monitor symptoms if dizziness, continues consider meclizine.
[2019-07-12] MEDS: CARBAMIDE PEROXIDE 6.5% OTIC 15 ML BOTTLE AD SCH ×2 (15:16→21:36)
[2019-07-12] MEDS: THIAMINE HCL 100 MG TABLET (FP) PO SCH (21:35)
[2019-07-12] MEDS: MELATONIN 5 MG TABLETS PO PRN (21:36)
[2019-07-13] MEDS: IBUPROFEN 400 MG TABLET (FP) PO PRN (08:56)
[2019-07-13] MEDS: CARBAMIDE PEROXIDE 6.5% OTIC 15 ML BOTTLE AD SCH ×2 (10:26→21:20)
[2019-07-13] MEDS: BACITRACIN 15 GM TUBE TOPICAL OINTMENT TP SCH (10:26)
[2019-07-13] MEDS: PRENATAL VITAMINS W/ FOLIC ACID TABLET (FP) PO SCH (10:26)
[2019-07-13] MEDS: THIAMINE HCL 100 MG TABLET (FP) PO SCH (21:20)
[2019-07-13] MEDS: MELATONIN 5 MG TABLETS PO PRN (21:20)
[2019-07-14] MEDS: IBUPROFEN 400 MG TABLET (FP) PO PRN (09:12)
[2019-07-14] MEDS: PRENATAL VITAMINS W/ FOLIC ACID TABLET (FP) PO SCH (09:12)
[2019-07-14] MEDS: CARBAMIDE PEROXIDE 6.5% OTIC 15 ML BOTTLE AD SCH ×2 (10:07→21:31)
[2019-07-14] MEDS: BACITRACIN 15 GM TUBE TOPICAL OINTMENT TP SCH (10:14)
[2019-07-14] MEDS: THIAMINE HCL 100 MG TABLET (FP) PO SCH (21:30)
[2019-07-14] MEDS: MELATONIN 5 MG TABLETS PO PRN (21:31)
[2019-07-15] MEDS: CARBAMIDE PEROXIDE 6.5% OTIC 15 ML BOTTLE AD SCH ×2 (09:43→21:09)
[2019-07-15] MEDS: PRENATAL VITAMINS W/ FOLIC ACID TABLET (FP) PO SCH (09:43)
[2019-07-15] MEDS: IBUPROFEN 400 MG TABLET (FP) PO PRN (09:43)
[2019-07-15] MEDS: BACITRACIN 15 GM TUBE TOPICAL OINTMENT TP SCH (09:43)
[2019-07-15] MEDS: THIAMINE HCL 100 MG TABLET (FP) PO SCH (21:09)
[2019-07-15] MEDS: MELATONIN 5 MG TABLETS PO PRN (21:10)
[2019-07-16] MEDS: IBUPROFEN 400 MG TABLET (FP) PO PRN (06:51)
[2019-07-16] MEDS: PRENATAL VITAMINS W/ FOLIC ACID TABLET (FP) PO SCH (10:43)
[2019-07-16] MEDS: BACITRACIN 15 GM TUBE TOPICAL OINTMENT TP SCH (10:45)
[2019-07-16] MEDS: CARBAMIDE PEROXIDE 6.5% OTIC 15 ML BOTTLE AD SCH ×2 (10:46→21:53)
[2019-07-16] MEDS: THIAMINE HCL 100 MG TABLET (FP) PO SCH (21:53)
[2019-07-17] MEDS ORDERED: PT OWN MED DRAWER 7, Y5N ONE (09:03)
[2019-07-17] MEDS: CARBAMIDE PEROXIDE 6.5% OTIC 15 ML BOTTLE AD SCH ×2 (10:26→21:07)
[2019-07-17] MEDS: PRENATAL VITAMINS W/ FOLIC ACID TABLET (FP) PO SCH (10:26)
[2019-07-17] MEDS: BACITRACIN 15 GM TUBE TOPICAL OINTMENT TP SCH (10:26)
[2019-07-17] MEDS: MELATONIN 5 MG TABLETS PO PRN (21:07)
[2019-07-17] MEDS: THIAMINE HCL 100 MG TABLET (FP) PO SCH (21:07)
[2019-07-18] MEDS: CARBAMIDE PEROXIDE 6.5% OTIC 15 ML BOTTLE AD SCH ×2 (09:27→21:40)
[2019-07-18] MEDS: PRENATAL VITAMINS W/ FOLIC ACID TABLET (FP) PO SCH (09:27)
[2019-07-18] MEDS: BACITRACIN 15 GM TUBE TOPICAL OINTMENT TP SCH (09:28)
[2019-07-18] MEDS: IBUPROFEN 400 MG TABLET (FP) PO PRN (21:39)
[2019-07-18] MEDS: THIAMINE HCL 100 MG TABLET (FP) PO SCH (21:40)
[2019-07-18] MEDS: MELATONIN 5 MG TABLETS PO PRN (21:40)
[2019-07-18] MEDS: hydrOXYzine PAMOATE 25 MG CAPSULE (FP) PO PRN (21:40)
[2019-07-19] MEDS: hydrOXYzine PAMOATE 25 MG CAPSULE (FP) PO PRN (08:24)
[2019-07-19] MEDS: PRENATAL VITAMINS W/ FOLIC ACID TABLET (FP) PO SCH (10:09)
[2019-07-19] MEDS: BACITRACIN 15 GM TUBE TOPICAL OINTMENT TP SCH (10:11)
--- NOTE | 2019-07-19 10:18 | PN ---
[facility] Progress Note Note: Patient c/o left ear pain-outside area, with drainage. Patient has been treated for left ear wax with debrox ear gtts. States in past 2 days he has been experiencing light yellow discharge and pain to outside of ear. Patient denies sore throat, cough, and fever. Vital Signs Temperature 97.9 F 07/19/19 07:18 Pulse Rate 98 H 07/19/19 07:18 Respiratory Rate 20 07/19/19 07:18 Blood Pressure 107/74 07/19/19 07:18 O2 Sat by Pulse Oximetry (%) PE alert and oriented x 3 skin warm and dry +perrla, eoms intact bl right ear tm intact, pearly alexandra, no d/c left ear draining clear yellow d/c, +preauricular tenderness with mild swelling and redness, tm intact- pearly alexandra, patient able to hear in both ears b/l neck supple, no jvd car s1s2 resp cta bl A/P: possible early otitis externa will d/c debrox gtts start azithromycin 500mg daily x 3 days continue motrin prn monitor clinically, in no improvement in 48 hours, consider different treatment course
[2019-07-19] MEDS: AZITHROMYCIN 250 MG TABLET PO SCH (12:11)
[2019-07-19] MEDS: CARBAMIDE PEROXIDE 6.5% OTIC 15 ML BOTTLE AD SCH (12:15)
[2019-07-19] MEDS: THIAMINE HCL 100 MG TABLET (FP) PO SCH (21:43)
[2019-07-19] MEDS: MELATONIN 5 MG TABLETS PO PRN (21:43)
[2019-07-20] MEDS: PRENATAL VITAMINS W/ FOLIC ACID TABLET (FP) PO SCH (09:50)
[2019-07-20] MEDS: BACITRACIN 15 GM TUBE TOPICAL OINTMENT TP SCH (09:50)
[2019-07-20] MEDS ORDERED: PT OWN MED DRAWER 7, Y5N ONE (09:52)
[2019-07-20] MEDS: AZITHROMYCIN 250 MG TABLET PO SCH (10:12)
[2019-07-20] MEDS: THIAMINE HCL 100 MG TABLET (FP) PO SCH (21:41)
[2019-07-21] MEDS ORDERED: PT OWN MED DRAWER 7, Y5N ONE (08:50)
--- NOTE | 2019-07-21 09:59 | PN ---
S Progress Note (SOAP) Subjective: Patient with c/o pain in left ear. Previously treated with debrox for ear wax; azithromycin was added because the ear became reddened and painful. Patient continues to c/o pain. He was observed by the nurse using the cap of a pen to clean his ears Objective: P/E: General: found resting in bed, appears to be in pain, drainage from ear on towel over pillow HEENTM: Ears: right ear: ear canal clear Left: tragus swollen, helix swollen, unable to insert otoscope. Reddened, tender to palpation. yellow drainage to towel 07/21/19 09:56 07/21/19 09:57 Assessment: otitis externa 07/21/19 10:00 Plan: levoquin po and cortosporin otic suspension ordered. Motrin increased to 600 mg , good ear hygiene instructions given.
[2019-07-21] MEDS: PRENATAL VITAMINS W/ FOLIC ACID TABLET (FP) PO SCH (10:05)
[2019-07-21] MEDS: BACITRACIN 15 GM TUBE TOPICAL OINTMENT TP SCH (10:06)
[2019-07-21] MEDS: IBUPROFEN 600 MG TABLET (FP) PO PRN (10:06)
[2019-07-21] MEDS: NEOMYCIN/POLYMYXN/HC OTIC SUSPENSION 10 ML BOTTLE AS SCH ×2 (15:44→18:30)
[2019-07-21] MEDS: THIAMINE HCL 100 MG TABLET (FP) PO SCH (21:41)
[2019-07-21] MEDS: MELATONIN 5 MG TABLETS PO PRN (21:41)
[2019-07-22] MEDS: NEOMYCIN/POLYMYXN/HC OTIC SUSPENSION 10 ML BOTTLE AS SCH ×2 (01:05→06:22)
[2019-07-22] MEDS: IBUPROFEN 600 MG TABLET (FP) PO PRN ×2 (02:45→08:41)
[2019-07-22 07:13] VITALS: BP 108/58; PULSE 88; TEMP 97.9
[2019-07-22] MEDS ORDERED: PT OWN MED DRAWER 7, Y5N ONE (10:01)
--- NOTE | 2019-07-22 10:24 | DS ---
[facility] Detox Discharge Summary Admission Date: 07/11/19 - History Present History: Alcohol Dependence, Cocaine Dependence Pertinent Past History: Tonny Blank is a 58 year old male with alcohol, cocaine, and opiate abuse. Alcohol: 6 24oz cans and a pint of rum every day. Has been drinking for 10 years. Longest period of sobriety: 10 years. Started drinking again due to divorce. Has had seizure in the past, most recent was several years prior. Has had blackouts, 3 months ago. Has had falls and head hits. Was at hospital for a recent fall and head hit and was cleared by [facility] for any acute pathology as per patient. Stated has residual rib pain. Withdrawal symptoms: anxiety, nausea, tremors. Cocaine: use depends on money 50$ and up. Uses daily. Heroin: 3-4 bags occasionally. Inhalation. Denies IVDU. Denies every being on methadone program. Denies overdose. Denies having a Narcan kit but knows how to use. THC: 2-3 blunts daily. Denies BZO use, but states he received medications at [facility], unsure of what medications. Has been to detox in the past. Denies previous rehab. States wanted to go to rehab after detox. Medical History: Hep C (no treatment), arthritis, osteoporosis, stroke (no residual deficits), Psychiatric History: depression Surgical History: denies Smokin cigarettes a day, for "many years" Social: Homeless. Disabled. 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
--- NOTE | 2019-07-22 10:31 | DS ---
[facility] Rehab Discharge Summary - [facility] Rehab Discharge Summary Admission Date: 07/11/19 Discharge Date: 07/22/19 - History Present History: Alcohol dependence, Cocaine dependence Pertinent Past History: History of Present Illness: Tonny Blank is a 58 year old male presenting with alcohol, cocaine, and opiate abuse. Alcohol: 6 24oz cans and a pint of rum every day. Has been drinking for 10 years. Longest period of sobriety: 10 years. Started drinking again due to divorce. Has had seizure in the past, most recent was several years prior. Has had blackouts, 3 months ago. Has had falls and head hits. Was at hospital for a recent fall and head hit and was cleared by [facility] for any acute pathology as per patient. Stated has residual rib pain. Withdrawal symptoms: anxiety, nausea, tremors. Cocaine: use depends on money 50$ and up. Uses daily. Heroin: 3-4 bags occasionally. Inhalation. Denies IVDU. Denies every being on methadone program. Denies overdose. Denies having a Narcan kit but knows how to use. THC: 2-3 blunts daily. Denies BZO use, but states he received medications at [facility], unsure of what medications. Has been to detox in the past. Denies previous rehab. Medical History: Hep C (no treatment), arthritis, osteoporosis, stroke (no residual deficits), Psychiatric History: depression Surgical History: denies Smokin cigarettes a day, for "many years" Social: Homeless. Disabled. 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 Patient is returning to [place] and will seek aftercare there.) - Medication Discharge Medications: Ambulatory Orders Ibuprofen [Motrin -] 600 mg PO Q4H PRN #30 tablet 07/22/19 Neomycin/Polymyxn/Hc [Cortisporin *Otic Suspenstion* -] 4 drop Q6HPO #1 bottle 07/22/19 levoFLOXacin [Levaquin -] 500 mg PO DAILY@0600 #20 tablet 07/22/19 - Medication-Assisted Treatment (MAT) Medication-Assisted Treatment (MAT): No - Discharge Instructions Diet, activity, other medical instructions: Diet:as tolerated Activity: as tolerated Other medical instructions: Please follow up with aftercare - Diagnosis (1) Alcohol abuse Current Visit: No Status: Chronic (2) Cocaine abuse Current Visit: No Status: Chronic - Follow-up Referral Minutes to complete discharge: 20 - AMA Did Patient Leave Against Medical Advice: No
[2019-07-22] MEDS: PRENATAL VITAMINS W/ FOLIC ACID TABLET (FP) PO SCH (11:13)
[2019-07-22] MEDS: BACITRACIN 15 GM TUBE TOPICAL OINTMENT TP SCH (11:13)
== END 2019-07-22 11:05 | disposition home or self-care (01) | DRG 772 ==
LOC: YASAS 12:46 → Y3W 12:47
PROVIDERS: ADMIT Neuromusculoskeletal Medicine & OMM; ATTEND Neuromusculoskeletal Medicine & OMM
PROC: HZ42ZZZ Group Counseling for Substance Abuse Treatment, Cognitive-Behavioral (ICD-10-PCS; principal; 2019-07-11)
DX: F10.20 Alcohol dependence, uncomplicated (principal); F14.20 Cocaine dependence, uncomplicated; H60.92 Unspecified otitis externa, left ear